=== PATIENT | male | born 1940 | race Caucasian/White ===

== ENCOUNTER 2016-06-14 06:52 | Day surgery (SDC) | payer MEDICARE, OTHER ==
[~2016-06-14] VITALS: Ht 165.1 cm; Wt 49.1 kg
[~2016-06-14 06:52] MED LIST: LACTATED RINGERS 1,000 ML IV ONE; SODIUM CHLORIDE FLUSH 3 ML SYR ONE
[2016-06-14] MEDS ORDERED: LACTATED RINGERS 1,000 ML IV SCH (07:00)
[2016-06-14] MEDS ORDERED: SODIUM CHLORIDE FLUSH 3 ML SYR IV PRN (07:00)
[2016-06-14 07:03] VITALS: BP 132/73
[2016-06-14] MEDS ORDERED: ALFENTANIL 500 MCG/ML (ALFENTA) 5 ML AMP IV ONE (07:29)
[2016-06-14] MEDS ORDERED: MIDAZOLAM 2 MG/2 ML (VERSED) VIAL ONE (07:29)
[2016-06-14] MEDS ORDERED: PROPOFOL 20 ML IV ONE (07:29)
[2016-06-14] MEDS ORDERED: FLUMAZENIL (ROMAZICON) 0.1 MG/ML 5 ML VIAL ONE (09:16)
[2016-06-14 09:41] VITALS: BP 120/61
[2016-06-14 10:21] VITALS: BP 133/43
== END 2016-06-14 10:33 | disposition home or self-care (01) ==
LOC: ASC 06:52
PROVIDERS: ATTEND Surgery
DX: C18.2 Malignant neoplasm of ascending colon (principal); D12.5 Benign neoplasm of sigmoid colon; K57.30 Diverticulosis of large intestine without perforation or abscess without bleeding; K76.9 Liver disease, unspecified; E27.8 Other specified disorders of adrenal gland; Z87.891 Personal history of nicotine dependence; R63.4 Abnormal weight loss; Z68.1 Body mass index [BMI] 19.9 or less, adult; Z80.9 Family history of malignant neoplasm, unspecified
CPT/HCPCS: 36415; 45381; 45385; 82378; 83835; 88305; 93005; J2250; J3490; J7120

== ENCOUNTER 2016-06-21 09:31 | Inpatient (IN) | payer MEDICARE, OTHER ==
[2016-06-21] VITALS (13 sets, daily range): BP systolic 115–153; BP diastolic 57–85
[~2016-06-21] VITALS: Ht 165.1 cm; Wt 59.2 kg
[~2016-06-21 09:31] MED LIST changes: +BUPIVACAINE/EPINEPHRINE 0.5%-1:200,000 (MARCAINE) 30 ML VIAL INJ ONE; +ENOXAPARIN 30 MG/0.3 ML (LOVENOX) SYR SC ONE; -LACTATED RINGERS 1,000 ML IV ONE; +LACTATED RINGERS 1,000 ML IV SCH; +MINERAL OIL 25 ML BTL TOP ONE; -SODIUM CHLORIDE FLUSH 3 ML SYR ONE; +ceFAZolin 2,000 MG in WATER (STERILE) FOR INJECTION 20 ML IV SCH
[2016-06-21] MEDS: SODIUM CHLORIDE FLUSH 3 ML SYR IV PRN (10:18)
[2016-06-21 10:46] LABS: MEAN CORPUSCULAR HEMOGLOBIN 24.5 PG (26.0-34.0); MEAN PLATELET VOLUME 8.3 FL (6.0-9.5); WHITE BLOOD COUNT 21.68 10^3uL (4.0-11.0)
[2016-06-21 10:52] LABS: ANION GAP 14.2 MEQ/L (3-15)
[2016-06-21] MEDS ORDERED: MIDAZOLAM 2 MG/2 ML (VERSED) VIAL ONE (11:11)
[2016-06-21] MEDS ORDERED: PROPOFOL 20 ML IV ONE (11:11)
[2016-06-21] MEDS ORDERED: ALFENTANIL 500 MCG/ML (ALFENTA) 5 ML AMP IV ONE (11:11)
[2016-06-21] MEDS ORDERED: ROCURONIUM 50 MG/5 ML (ZEMURON) VIAL IV ONE (11:51)
[2016-06-21] MEDS ORDERED: diphenhydrAMINE 50 MG/ML INJ (BENADRYL) ONE (11:51)
[2016-06-21] MEDS ORDERED: ONDANSETRON 2 MG/ML (Z0FRAN) 2 ML VIAL ONE (11:51)
[2016-06-21 12:19] LABS: BILIRUBIN,URINE Negative (Negative); CLARITY,URINE Clear; COLOR,URINE Yellow; GLUCOSE, URINE (UA) Negative (Negative); LEUKOCYTE ESTERASE ,URINE Negative (Negative); UROBILINOGEN,URINE 0.2 mg/dL (0.2-1.0)
[2016-06-21] MEDS ORDERED: GLYCOPYRROLATE 0.2 MG/ML (ROBINUL) 1 ML VIAL ONE (13:12)
[2016-06-21] MEDS ORDERED: NEOSTIGMINE 1 MG/ML SYRINGE ONE (13:12)
[2016-06-21] MEDS ORDERED: morphine INJ 4 MG/ML 1 ML SYRINGE ONE (14:17)
[2016-06-21] MEDS ORDERED: NALOXONE 0.4 MG/ML (NARCAN) 1 ML VIAL IV PRN (14:45)
[2016-06-21] MEDS ORDERED: HYDROmorphone PCA 30 MG/30 ML (DILAUDID) VIAL IV PRN (14:45)
[2016-06-21] MEDS ORDERED: diphenhydrAMINE 50 MG/ML INJ (BENADRYL) IV PRN (14:45)
--- NOTE | 2016-06-21 15:15 | NUR ---
Patient arrives to room 313 via bed from recovery room. Remains drowsy from surgery. 2L of 02 applied for oxygen saturation of 88% on roomair upon arrival. 4 abdominal incisions with dressing clean, dry, and intact. Patient oriented to room and floor routines. Call light in reach.
[2016-06-21] MEDS: 0.45% SOD CHLORIDE (1/2 NS) 1,000 ML IV SCH (15:58)
[2016-06-21] MEDS: KETOROLAC 30 MG/ML (TORADOL) 1 ML VIAL IV SCH (17:26)
[2016-06-21] MEDS: ONDANSETRON 2 MG/ML (Z0FRAN) 2 ML VIAL IV SCH (17:26)
--- NOTE | 2016-06-21 17:57 | NUR ---
Patient sitting up in bed consuming small amount of ice chips. Daughters at bedside. reports abdominal pain rated 1/10 on pain scale. Dilaudid CUSTOMER SERVICE VOICE button within reach. Noyola catheter draining clear yellow urine. Call light in reach.
[2016-06-21] MEDS: GABAPENTIN 100 MG (NEURONTIN) CAP PO SCH ×2 (20:00→21:00)
--- NOTE | 2016-06-21 20:00 | NUR ---
Patient resting in bed. HOB elevated 30 degrees. Abdominal dressings dry and intact. Taking ice chips without nausea. Reminded on how to use the SPINNING FRAME TENDER to control his pain. Has only used it once since surgery. Patient denies pain or nausea. IV patent at 100 cc an hour. No complications at site. Noyola catheter drains yellow urine. Takes ice chips without nausea. Taking a few sips of water without difficulty. Scds on and functioning. No bowel sounds auscultated. Oxygen on at 2 liters per nasal cannula. ETC02 on and vitals within parameters. Call light within reach.
[2016-06-22] VITALS (10 sets, daily range): BP systolic 97–152; BP diastolic 56–79
--- NOTE | 2016-06-22 | NUR ---
Resting well in bed. Repositioned in bed. HOB elevated 30 degrees. Dressings remain dry and intact. No bowel sounds yet. Denies pain or nausea. IV patent. Used CLASS C TRUCK DRIVER only one time. Reminded to use CLASS C TRUCK DRIVER if needed. Noyola drains ascencion. Takes liquids, sips well. Takes ice chips well. Not passing flatus yet. Toradol and Zofran administered as ordered q 6 hours. Patient alert and oriented. Call light within reach. No concerns at this time.
[2016-06-22] MEDS: 0.45% SOD CHLORIDE (1/2 NS) 1,000 ML IV SCH ×2 (00:45→11:23)
[2016-06-22] MEDS: ONDANSETRON 2 MG/ML (Z0FRAN) 2 ML VIAL IV SCH ×5 (06:00→23:49)
[2016-06-22 06:07] LABS: BASOPHILS % (AUTO) 1 % (0-2); EOSINOPHILS # (AUTO) 0.6 10^3uL; EOSINOPHILS % (AUTO) 5 % (0-4); LYMPHOCYTES # (AUTO) 2.6 X10^3; MEAN PLATELET VOLUME 8.5 FL (6.0-9.5); MONOCYTES # (AUTO) 0.9 X10^3; MONOCYTES % (AUTO) 7 % (3-11); NEUTROPHILS # (AUTO) 9.2 X10^3; NEUTROPHILS % (AUTO) 68 % (51-67); WHITE BLOOD COUNT 13.39 10^3uL (4.0-11.0)
[2016-06-22 06:14] LABS: MEAN CORPUSCULAR HEMOGLOBIN 24.3 PG (26.0-34.0); MEAN CORPUSCULAR VOLUME 76 FL (80-100)
[2016-06-22 06:15] LABS: PLATELET COUNT 754 10^3uL (150-450)
[2016-06-22 06:37] LABS: ANION GAP 10.2 MEQ/L (3-15)
[2016-06-22] MEDS: KETOROLAC 30 MG/ML (TORADOL) 1 ML VIAL IV SCH ×4 (06:37→17:47)
--- NOTE | 2016-06-22 08:11 | NUR ---
NUTRITION ASSESSMENT Level 1 Patient: Manish Franco Age/Sex: 76/M Date Screened: 06-22-16 Weight: 111.5#/50.7 kg Height: 65 inches Primary Diagnosis: colon cancer with right hemicolectomy Diet Order: none Relevant labs: glucose 64 Food allergies: N Nutrition Assessment Criteria Age over 80: N Body Mass Index (BMI) under 19: 6 points Admission Screening Indicates Risk? 6 points Moderate/High Risk Diagnosis: 6 points TPN or PPN: N NPO or clear liquid diet: Yes Serum Glucose <70 or >180: 3 points Hgb A1c >6.7: N/A Total: 21 points Risk Screen: __ Patient at low nutritional risk based on available data; reevaluate in 5-7 days __ Patient at moderate nutritional risk based on available data; reevaluate in 3-5 days _X_ Patient at high nutritional risk; complete Nutrition Assessment within 48 hours of admission.
[2016-06-22] MEDS: GABAPENTIN 100 MG (NEURONTIN) CAP PO SCH ×2 (08:14→20:55)
[2016-06-22] MEDS: ENOXAPARIN 30 MG/0.3 ML (LOVENOX) SYR SC SCH (08:14)
--- NOTE | 2016-06-22 08:37 | NUR ---
Pt awake, alert/oriented x4, watching tv. Taking Ice chips independently without difficulties- states this helps with dry mouth. IVF infusing at 100ml/hr as ordered to 18g RFA + Dilaudid FOUNDER AND CHIEF EXECUTIVE OFFICER intact- FOUNDER AND CHIEF EXECUTIVE OFFICER button within reach and re-educated on use if in pain. Has pushed FOUNDER AND CHIEF EXECUTIVE OFFICER button x1 since 0600 this am. ETCO2 monitor in place to Rt hand per FOUNDER AND CHIEF EXECUTIVE OFFICER protocol= HR 70, O2 94% on 3L nc, RR 20, ETCO2 25. Noyola to DD- clear, pale yellow urine in collection bag. SCD's in place to BLE as ordered- tolerates without c/o. Denies abd incisional pain- Incisional dressings x4 clean dry. Will change dressing with Dr. Hayes. Pt denies needs at this time. Call light within reach- calls appropriately.
--- NOTE | 2016-06-22 09:32 | NUR ---
NUTRITION ASSESSMENT Level II Patient: Manish Franco Age/Sex: 76/M Date Assessed: 06-22-16 ASSESSMENT Pertinent History: Patient admitted with colon cancer s/p right hemicolectomy on 06-21-16. PMHx appears negative for chronic diseases. Noted poor appetite with unintentional weight loss of ~20# over the past couple of months; the only other weight documented in chart is 113# on 06-13-16. Meds/Nutrition: NS Weight: 111.5#/50.7 kg Height: 65 inches Body Mass Index (BMI): 18.6 [place] Body Weight : 136#/61.8 kg % IBW: 81% GASTROINTESTINAL Appetite: poor Diet Order: NPO Unintentional loss of >10 lbs. in 3 months: Yes Difficult to chew/swallow: N Diabetes: N Relevant Labs: glucose 64 Calculations for Nutritional Assessment Estimated calorie needs: 28-30 kcals/kg = 1,400-1,500 kcals (plus 500-1,000 for weight gain) Estimated protein needs: 1.3-1.5 g/kg = 65-75 g./day DIAGNOSIS 1. 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 2. Nutrition Diagnosis: Altered GI function related to recent surgery as evidenced by right hemicolectomy POD #1. NUTRITIONAL INTERVENTION Goal: Patient will receive adequate nutrition to meet his needs within an appropriate time-frame with gradual return to normal BMI. Plan: Will monitor length of time NPO and follow progress with surgeon. This is POD #1. MONITORING & EVALUATION __ Monitor patients menu selections __ Monitor patients food intake per nursing notes _X_ Monitor NPO/clear liquid days __ Monitor lab values __ Monitor I&O __ Other
--- NOTE | 2016-06-22 09:45 | NUR ---
Dr. Hayes has been here this AM to see patient. He changed abd dressings. All clean, dry intact. Incisions all well approximated. No redness/swelling or drainage from incisions.
--- NOTE | 2016-06-22 11:47 | NUR ---
MED REC COMPLETED-current med list obtained from Ext Med History application and patient interview. Conducted by Mitch Williamson, PharmD Candidate 2017.
--- NOTE | 2016-06-22 11:50 | NUR ---
Noyola catheter dc'd per Dr. Hayes orders. balloon intact. pt tolerated without c/o.
--- NOTE | 2016-06-22 12:00 | NUR ---
Pt up in chair for lunch- tolerating clear liquid diet without c/o n/v. Hypoactive bowel sounds. denies passing gas per rectum.
--- NOTE | 2016-06-22 15:46 | NUR ---
O2 titrated to 1L nc from 3L. Erin RT notified. O2 sats 99% on 3L nc. Will cont to monitor. Has voided 250ml pale, clear yellow urine since derrick Has used 0.9mg Dilaudid on SWATCH CLERK since 0600 this AM. Stands at edge of bed indep to stretch legs. agreed to ambulate halls this afternoon.
--- NOTE | 2016-06-22 16:45 | NUR ---
O2 sats 95% 1L nc. Titrated to RA now. Will cont to monitor. ANTIQUE FURNITURE RESTORER Dc'd at this time. Used 0.9mg Dilaudid since 0600. Wasted 27mg. Ambulated 2 full laps. Sipping coffee. SL at this time
--- NOTE | 2016-06-22 18:33 | NUR ---
Pt remains on RA, no distress. IV SL. Watching tv . Denies abd pain. Will cont to monitor patient.
--- NOTE | 2016-06-22 19:30 | NUR ---
Pt laying in bed. Saline lock without redness or edema. Abdomen dressings dry and intact. Pt denies any pain at this time.
--- NOTE | 2016-06-22 19:35 | NUR ---
Pt found lying in bed on RA, SPO2 94%, HR 67, RR 16 and non labored. IS x 4 x 1500 ml with good breath hold.
--- NOTE | 2016-06-22 21:45 | NUR ---
Pt offered pain medication. Pt denies need for pain medication at this time. Pt declines a walk in the hallway at this time.
[2016-06-22] MEDS: SODIUM CHLORIDE FLUSH 3 ML SYR IV PRN (23:47)
[2016-06-23] MEDS: KETOROLAC 30 MG/ML (TORADOL) 1 ML VIAL IV SCH (00:45)
[2016-06-23 04:28] VITALS: BP 105/62
[2016-06-23] MEDS: ONDANSETRON 2 MG/ML (Z0FRAN) 2 ML VIAL IV SCH (06:00)
[2016-06-23 06:05] LABS: BASOPHILS % (AUTO) 0 % (0-2); EOSINOPHILS # (AUTO) 0.6 10^3uL; EOSINOPHILS % (AUTO) 5 % (0-4); LYMPHOCYTES # (AUTO) 1.8 X10^3; MEAN PLATELET VOLUME 8.3 FL (6.0-9.5); MONOCYTES # (AUTO) 0.6 X10^3; MONOCYTES % (AUTO) 6 % (3-11); NEUTROPHILS # (AUTO) 7.8 X10^3; NEUTROPHILS % (AUTO) 72 % (51-67); WHITE BLOOD COUNT 10.86 10^3uL (4.0-11.0)
[2016-06-23 06:11] LABS: MEAN CORPUSCULAR HEMOGLOBIN 23.7 PG (26.0-34.0); MEAN CORPUSCULAR HGB CONC 31.3 g/dL (31.0-37.0); MEAN CORPUSCULAR VOLUME 76 FL (80-100)
[2016-06-23 06:12] LABS: PLATELET COUNT 866 10^3uL (150-450)
[2016-06-23 06:35] LABS: ANION GAP 9.5 MEQ/L (3-15)
--- NOTE | 2016-06-23 06:55 | NUR ---
Pt refuses MARY Headley. States he isn't feeling nauseous. States his pain is "fine". Denies needs at this time.
[2016-06-23 08:05] VITALS: BP 140/67
[2016-06-23] MEDS: GABAPENTIN 100 MG (NEURONTIN) CAP PO SCH ×2 (08:22→20:48)
[2016-06-23] MEDS: ENOXAPARIN 30 MG/0.3 ML (LOVENOX) SYR SC SCH (08:22)
[2016-06-23] MEDS ORDERED: ASPIRIN 325 MG TAB PO SCH (09:00)
[2016-06-23] MEDS: NS FLUSH 3 ML DAILY IV SCH (09:13)
[2016-06-23] MEDS: ONDANSETRON 2 MG/ML (Z0FRAN) 2 ML VIAL IV PRN ×3 (09:18→20:48)
--- NOTE | 2016-06-23 09:22 | NUR ---
Pt states he is belching so much after breakfast that he feels like he may vomit. PRN Zofran given. Pt then stated that he belched enough to clear the nausea. Pt denies other needs.
[2016-06-23 11:59] VITALS: BP 146/60
--- NOTE | 2016-06-23 13:06 | NUR ---
Visited with Pt. and daughter about Dr. Jones's recommendation of having the Lovenox shot daily for the next four weeks upon discharge to prevent blood clots. DEMAR explained this could be administered by family if they were comfortable or home health services could help with this. Pt. stated he wasn't sure he wanted to do this. If he does decide this then he would utilize [facility] . the home health agency in [place], [place] SW discussed this with Dr. Jones who stated he would come visit with Pt. and his daughter. He also said Pt. would need two weeks not four weeks. Pt. and daughter were informed of this. After visiting with Dr. Jones Pt. agreed to complete the two weeks of Lovenox shot. DEMAR will contact the [facility] and find out if there will be a cost to Pt. and report back to Pt. and daughter. Addendum: 06/23/16 at 1405 by Alyce RESENDIZ At the request of Pt. daughter DEMAR contacted Pt. pharmacy [facility] in [place] to get a cost of the medication for Pt. DEMAR also contacted [facility] in [place] to obtain the cost of outpatient injections. After discussing this with Pt. daughter she decided they would go with home health services. DEMAR has notified [facility] of Pt. scheduled discharge on Sunday.
[2016-06-23] MEDS: NS FLUSH 10 ML PRN IV ×4 (14:59→20:48)
[2016-06-23] MEDS: HYDROmorphone 1 MG/ML (DILAUDID) SYRINGE IV PRN ×3 (15:23→23:41)
[2016-06-23 15:49] VITALS: BP 154/78
--- NOTE | 2016-06-23 16:39 | NUR ---
Patient reports "gas discomfort" and bloating in generalize abdomen. Attempts to walk in halls to "move air". Ambulates 1/2 lap before returning to room with increased pain. PRN Zofran and Dilaudid provided for pain. At 1620 patient expels 300ml green bile emesis. Reports relief from pain after this. Dr. Jones notified by phone that patient is not passing gas and current status. Reports he will be here in a few minutes. Daughters at bedside. Will continue to monitor.
[2016-06-23] MEDS ORDERED: BISACODYL 10 MG SUPP (DULCOLAX) PR ONE (17:05)
--- NOTE | 2016-06-23 17:20 | NUR ---
IVF initiated and Dulcolax suppository administered per order. Patient educated on NPO status. Will continue to monitor.
--- NOTE | 2016-06-23 18:27 | NUR ---
Patient sitting up in bed. Reports "terrible taste in mouth" but denies further gas discomfort or nausea. IVF infusing without difficulty. Daughter at bedside and updated on plan of care. Call light in reach.
[2016-06-23 20:13] VITALS: BP 133/76
--- NOTE | 2016-06-23 20:50 | NUR ---
Dilaudid 0.3 mg IV given for epigastric/incisional pain rated "6".
--- NOTE | 2016-06-23 20:50 | NUR ---
Zofran 4 mg IV given for nausea.
--- NOTE | 2016-06-23 22:35 | NUR ---
Pt. takes a full lap around the Med Surg floor hallway with this RN; stops once to rest; pace quick and steady. Pt. states, "If I could only burp, I would feel so much better!". Pt. experiences aprx. 50 cc's emesis after returning to room. Abd. firm to palpitation. Dressings secure with no drainage noted. Pt. sits at bedside for while. Call light within reach. NPO status observed.
--- NOTE | 2016-06-23 23:45 | NUR ---
Dilaudid 0.3mg IV given for abd/upper gastric pain rated "4". Pt. resting with HOB elevated; IVF infusing without difficulty; call light within reach. Mouth sponges at bedside.
[2016-06-24] VITALS (7 sets, daily range): BP systolic 115–161; BP diastolic 57–85
--- NOTE | 2016-06-24 01:30 | NUR ---
Pt. resting quietly; appears to be in no distress; HOB elevated; call light within reach.
[2016-06-24] MEDS: ONDANSETRON 2 MG/ML (Z0FRAN) 2 ML VIAL IV PRN ×4 (03:13→23:59)
[2016-06-24] MEDS: HYDROmorphone 1 MG/ML (DILAUDID) SYRINGE IV PRN ×2 (03:14→06:02)
--- NOTE | 2016-06-24 03:15 | NUR ---
Zofran 4 mg IV given for nausea; Dilaudid 0.3mg given for incisional/upper gastric discomfort. Pt. had a small amount of emesis-50 cc's-states, "I am burping a little but still feel full and have pressure". Room temperature adjusted for pt. comfort.
--- NOTE | 2016-06-24 06:05 | NUR ---
Dilaudid 0.3mg IV given for abd. pain rated "5-6". Pt. denies nausea currently. Abd. noted to be firmer than at earlier assessment; HOB elevated. Call light within reach; NPO status observed.
[2016-06-24 06:46] LABS: MEAN PLATELET VOLUME 8.8 FL (6.0-9.5)
[2016-06-24 07:01] LABS: MEAN CORPUSCULAR HEMOGLOBIN 23.3 PG (26.0-34.0); MEAN CORPUSCULAR HGB CONC 31.5 g/dL (31.0-37.0); MEAN CORPUSCULAR VOLUME 74 FL (80-100)
[2016-06-24 07:04] LABS: ANION GAP 10.8 MEQ/L (3-15); MAGNESIUM* 2.2 mg/dL (1.6-2.3); PHOSPHORUS 3.1 mg/dL (2.4-4.9); PLATELET COUNT 935 10^3uL (150-450)
[2016-06-24 07:14] LABS: BAND NEUTROPHILS % 1 % (0-6); EOSINOPHILS % 0 % (0-4); LYMPHOCYTES # 1.9 #; MONOCYTES # 0.5 #; MONOCYTES % 6 % (3-11); RBC MORPH SEE REFERENCE (NORMAL); SEGMENTED NEUTROPHILS % 74 % (51-67); TOTAL CELLS COUNTED 100
[2016-06-24 07:15] LABS: ANISOCYTOSIS SLIGHT; HYPOCHROMASIA SLIGHT
[2016-06-24] MEDS: NS FLUSH 3 ML DAILY IV SCH (09:00)
[2016-06-24] MEDS: GABAPENTIN 100 MG (NEURONTIN) CAP PO SCH ×2 (09:29→21:20)
[2016-06-24] MEDS: ENOXAPARIN 30 MG/0.3 ML (LOVENOX) SYR SC SCH (09:30)
--- NOTE | 2016-06-24 09:30 | NUR ---
Dr. Jones here to assess the patient. Incisions on the abdomen are dry and intact and dressings were left off at this time.
[2016-06-24] MEDS ORDERED: BISACODYL 10 MG SUPP (DULCOLAX) PR ONE (09:45)
--- NOTE | 2016-06-24 10:45 | NUR ---
Gave dulcolax suppository per order.
--- NOTE | 2016-06-24 10:50 | NUR ---
Walked two full laps in the aguirre with stand by assist. Educated patient on the importance of picking his feet up while walking the halls- he frequently shuffles.
--- NOTE | 2016-06-24 11:50 | NUR ---
Walked another 2 laps with stand by assist.
--- NOTE | 2016-06-24 12:10 | NUR ---
The patient was able to pass gas and a small amount of stool. Abdomen remains distended but is softer than earlier this morning.
[2016-06-24] MEDS: NALBUPHINE 10 MG/ML (NUBAIN) 1 ML AMP IV PRN ×2 (14:26→20:36)
--- NOTE | 2016-06-24 15:09 | NUR ---
Walked another lap in the aguirre with the OBSERVER GRAVITY PROSPECTING. Complains again of "burping" as he has throughout the day. Educated the patient that there continues to be gas moving around the abdomen but he is very impatient and wants this discomfort to go away immediately.
--- NOTE | 2016-06-24 17:15 | NUR ---
Walked another full lap in the aguirre with stand by assist from the VAT SKIMMER.
--- NOTE | 2016-06-24 17:30 | NUR ---
Patient had a liquid stool.
--- NOTE | 2016-06-24 18:08 | NUR ---
Abdomen is much softer than this morning and much less distended. Incisions remain open to air- dry and intact. Patient has required only 1 dose of IV Nubain on this shift. He still reports a feeling of nausea but the only thing he brings up is thick phlegm that is usually brown/yellow in color- no stomach contents. Educated him on deep breathing and the importance of continued use of incentive spirometry.
[2016-06-24] MEDS: SODIUM CHLORIDE FLUSH 3 ML SYR IV PRN (20:36)
[2016-06-24] MEDS: NS FLUSH 10 ML PRN IV ×2 (20:36→23:59)
--- NOTE | 2016-06-24 20:36 | NUR ---
Nubain IV given for pain level of "8". Pt. nauseated; scant amount of emesis; "wretching". IVF infusing at 80 cc's an hour. Room full of visitors. Encouraged pt. to walk with this RN in a few minutes.
--- NOTE | 2016-06-24 21:10 | NUR ---
Pt. ambulating hallway with family members; two times around; tends to shuffle feet; pace fairly quick.
--- NOTE | 2016-06-25 | NUR ---
Zofran 4 mg IV given for nausea; pt. resting in darkened room; additional blanket provided for comfort.
[2016-06-25] MEDS: NALBUPHINE 10 MG/ML (NUBAIN) 1 ML AMP IV PRN ×4 (02:25→18:09)
[2016-06-25] MEDS: NS FLUSH 10 ML PRN IV (02:25)
--- NOTE | 2016-06-25 02:25 | NUR ---
Pt. experiences aprx. 100 cc's emesis. Partial linen change; pt. sits up at bedside; Nubain given for pain level of "8". No change in firmness of stomach since assessment earlier. IVF infusing without difficulty; bedside table at right side; call light within reach.
[2016-06-25 04:45] VITALS: BP 116/65
[2016-06-25] MEDS: ONDANSETRON 2 MG/ML (Z0FRAN) 2 ML VIAL IV PRN ×3 (06:20→18:15)
--- NOTE | 2016-06-25 06:20 | NUR ---
Zofran 4 mg IV given for nausea. Pt. has slept in longer intervals compared to previous night.
--- NOTE | 2016-06-25 06:45 | NUR ---
Nubain given for pain rated "8". Pt. expresses discontent with slow recovery from surgery; "I should be home now and not still here in the hospital being in pain--I"m tired of all this!" Much reassurance given to pt. NPO status remains. Pt. has utilized urinal at bedside throughout the shift. Gown changed and room temperature adjusted for comfort. Pt. reminded to not lay flat in bed; HOB elevated but pt. scoots down often. Pt. is cooperative with cares; call light and H2O within reach. Note: Pt. did have one actual episode of emesis last shift; all other reports of "throwing up" were actually saliva/phlegm. Pt. wonders if the Zofran is causing him to "throw up all the time".
[2016-06-25 08:08] VITALS: BP 146/68
--- NOTE | 2016-06-25 08:15 | NUR ---
Ambulated one lap in the aguirre with the SPOOL WINDER.
[2016-06-25] MEDS: NS FLUSH 3 ML DAILY IV SCH (09:00)
--- NOTE | 2016-06-25 09:30 | NUR ---
Patient had one episode of vomiting green colored liquid- 150 cc's total. But it took about 5 minutes of gagging and coughing before this liquid and some thick sputum came up. He also forced several large belches before this liquid/sputum combination came up.
[2016-06-25] MEDS: GABAPENTIN 100 MG (NEURONTIN) CAP PO SCH ×2 (09:36→20:21)
[2016-06-25] MEDS: ENOXAPARIN 30 MG/0.3 ML (LOVENOX) SYR SC SCH (09:37)
--- NOTE | 2016-06-25 09:42 | NUR ---
Ambulated one lap in the aguirre with the FULFILLMENT MAIL CLERK. He states he's in too much pain to walk more. Pain medication administered at 0645. Educated the patient that as gas moves around he may experience periods of increased pain but movement assists in getting this gas expelled. His mood and and expressed frustration about still being in the hospital when he wants to be home are keeping him from processing this teaching at this time.
[2016-06-25] MEDS: PANTOPRAZOLE IV 40 MG in SODIUM CHLORIDE FLUSH 10 ML IV SCH (10:56)
--- NOTE | 2016-06-25 11:50 | NUR ---
Gave one enema per order. Patient tolerated this well and was able to lay on his left side without difficulty.
--- NOTE | 2016-06-25 12:10 | NUR ---
Patient had a medium loose stool. Abdomen continues to be soft and less distended than yesterday.
[2016-06-25 12:49] VITALS: BP 114/89
[2016-06-25] MEDS: KETOROLAC 15 MG/ML (TORADOL) 1 ML VIAL IV SCH ×2 (12:58→18:10)
--- NOTE | 2016-06-25 13:00 | NUR ---
Patient denies pain at this time.
--- NOTE | 2016-06-25 14:19 | NUR ---
Ambulated two laps in the aguirre with the REPAIRER CYLINDER HEADS. He reported he did not have any pain at this time.
[2016-06-25] MEDS: ACETAMINOPHEN 325 MG TAB (TYLENOL) PO PRN (15:59)
--- NOTE | 2016-06-25 15:59 | NUR ---
Pt c/o headache, Dr. Jones called and new order received. Tylenol 325mg tab x 2 given for headache per orders.
[2016-06-25 16:48] VITALS: BP 151/81
--- NOTE | 2016-06-25 17:29 | NUR ---
Patient remains NPO with gum and a limited amount of ice chips. He has not reported the return of his appetite yet. I have continued to encourage him about his improvements today but he continues to have a negative attitude about his progress. Daughters report he is frequently this way at home as well.
--- NOTE | 2016-06-25 18:30 | NUR ---
Patient reported to this nurse that he anticipates he will need to vomit soon. When I questioned him about this he stated "I don't have to right now but I will need to pretty soon."
[2016-06-25 19:48] VITALS: BP 145/83
--- NOTE | 2016-06-25 20:25 | NUR ---
Pt. takes PO meds with scant amount of water. IVF infusing at 80 cc/hr without difficulty. Pt. encouraged to ambulate again this evening; pt. states, "Oh, I just can't right now". NPO status observed minus ice chips and hard candy.
--- NOTE | 2016-06-25 22:00 | NUR ---
Pt. has refused to walk this evening with both RN and DIRECTOR DIVERSITY requests. PRN and scheduled pain meds reviewed. Call light within reach.
--- NOTE | 2016-06-25 23:30 | NUR ---
Report given to Symone/OBI; care relinquished.
[2016-06-25 23:51] VITALS: BP 156/70
[2016-06-26] MEDS: KETOROLAC 15 MG/ML (TORADOL) 1 ML VIAL IV SCH ×5 (00:06→23:55)
[2016-06-26 05:08] VITALS: BP 165/79
--- NOTE | 2016-06-26 05:22 | NUR ---
Pt rests in bed throughout the shift. Skin warm, dry, intact. Resprs nonlabored, even on RA. NS @ 80mL/hr infusing with no difficulty. Pt denies needs.
[2016-06-26 06:28] LABS: ANION GAP 13.4 MEQ/L (3-15)
[2016-06-26 07:28] VITALS: BP 155/69
[2016-06-26] MEDS: NS FLUSH 3 ML DAILY IV SCH (08:49)
[2016-06-26] MEDS: PANTOPRAZOLE IV 40 MG in SODIUM CHLORIDE FLUSH 10 ML IV SCH (08:49)
[2016-06-26] MEDS: GABAPENTIN 100 MG (NEURONTIN) CAP PO SCH ×2 (08:50→20:06)
[2016-06-26] MEDS: ONDANSETRON 2 MG/ML (Z0FRAN) 2 ML VIAL IV PRN ×2 (08:50→14:52)
[2016-06-26] MEDS: ENOXAPARIN 30 MG/0.3 ML (LOVENOX) SYR SC SCH (08:50)
[2016-06-26] MEDS: NALBUPHINE 10 MG/ML (NUBAIN) 1 ML AMP IV PRN ×2 (10:20→15:24)
[2016-06-26 11:18] VITALS: BP 110/59
--- NOTE | 2016-06-26 13:58 | NUR ---
MULTIDISCIPLINARY MTG-Pt. now has an ileus and is back to NPO. Pt. has been struggling with pain control and nausea. Pt. does not have much strength due to lack of nutrition. No discharge needs identified at this time.
[2016-06-26 15:34] VITALS: BP 137/80
--- NOTE | 2016-06-26 18:11 | NUR ---
Patient sitting up in recliner. Ambulates one lap today in aguirre. Reports feeling "weak and ran down". PRN Nubain provided on two occasions. Expels 50 ml emesis at 1500. [address]. Jones aware. Dr. Jones ok's patient chewing nicotine gum when patient desires. Call light in reach.
[2016-06-26 20:09] VITALS: BP 115/70
[2016-06-27 00:16] VITALS: BP 148/78
[2016-06-27] MEDS: NALBUPHINE 10 MG/ML (NUBAIN) 1 ML AMP IV PRN (04:02)
[2016-06-27] MEDS: ONDANSETRON 2 MG/ML (Z0FRAN) 2 ML VIAL IV PRN (04:02)
[2016-06-27] MEDS: NS FLUSH 10 ML PRN IV (04:03)
--- NOTE | 2016-06-27 04:03 | NUR ---
Pt wakes up and begins vomiting. States that his stomach hurts. PRN zofran and nubain given.
[2016-06-27] MEDS: KETOROLAC 15 MG/ML (TORADOL) 1 ML VIAL IV SCH ×3 (05:46→18:26)
[2016-06-27 05:59] VITALS: BP 170/82
--- NOTE | 2016-06-27 06:11 | NUR ---
Pt states that nausea and pain resolve with PRN medications. Denies further discomfort this morning, but does state that he has "not had much sleep. I've been lying here for ages." NS cont infusing at 80 ml/hr. Resp even and non labored on RA.
[2016-06-27 07:59] VITALS: BP 154/71
[2016-06-27] MEDS: NS FLUSH 3 ML DAILY IV SCH (09:00)
[2016-06-27] MEDS: PANTOPRAZOLE IV 40 MG in SODIUM CHLORIDE FLUSH 10 ML IV SCH (09:01)
[2016-06-27] MEDS: GABAPENTIN 100 MG (NEURONTIN) CAP PO SCH ×2 (09:02→20:44)
[2016-06-27] MEDS: ENOXAPARIN 30 MG/0.3 ML (LOVENOX) SYR SC SCH (09:03)
--- NOTE | 2016-06-27 10:12 | NUR ---
Pt to Radiology for abd x ray.
--- NOTE | 2016-06-27 10:45 | NUR ---
Pt returns from radiology. Pt is dry heaving, no vomiting noted. Once pt settled in chair in room, dry heaving ceased. Pt encouraged to sit up in the chair, lights on in room. Pt endorses feeling extremely tired. SL intact. Denies pain. Denies needs.
[2016-06-27 11:33] VITALS: BP 141/75
[2016-06-27 11:43] LABS: ALBUMIN 2.3 g/dL (3.4-5.0); ANION GAP 17.9 MEQ/L (3-15); CALCULATED IONIZED CALCIUM 4.5 mg/dL (3.8-4.6)
[2016-06-27] MEDS: ONDANSETRON 2 MG/ML (Z0FRAN) 2 ML VIAL IV SCH ×2 (12:08→18:27)
[2016-06-27 12:45] LABS: BASOPHILS % (AUTO) 0 % (0-2); EOSINOPHILS % (AUTO) 0 % (0-4); MEAN PLATELET VOLUME 8.6 FL (6.0-9.5); MONOCYTES # (AUTO) 0.7 X10^3; MONOCYTES % (AUTO) 8 % (3-11); NEUTROPHILS # (AUTO) 7.3 X10^3; NEUTROPHILS % (AUTO) 81 % (51-67); WHITE BLOOD COUNT 9.07 10^3uL (4.0-11.0)
[2016-06-27] MEDS ORDERED: TPN IV SCH (13:08)
[2016-06-27 13:49] LABS: MEAN CORPUSCULAR HEMOGLOBIN 23.6 PG (26.0-34.0); MEAN CORPUSCULAR HGB CONC 31.7 g/dL (31.0-37.0); MEAN CORPUSCULAR VOLUME 75 FL (80-100)
[2016-06-27 13:50] LABS: PLATELET COUNT 1039 10^3uL (150-450)
[2016-06-27] MEDS: ACETAMINOPHEN 325 MG TAB (TYLENOL) PO PRN (14:50)
[2016-06-27 15:29] VITALS: BP 154/67
[2016-06-27] MEDS: HYDROmorphone 1 MG/ML (DILAUDID) SYRINGE IV PRN ×2 (18:27→20:44)
--- NOTE | 2016-06-27 19:00 | NUR ---
Pt and family had a long discussion about plan of care regarding cancer diagnosis, discovery of lung mass. Hospice to consult with patient tomorrow, anesthesia to insert PICC line for TPN that will be initiated tomorrow. Pt informs doctors that he has been having intense pain throughout the day, despite rating his pain below a 4 to this nurse. Pt expressed many frustrations about his cares to Dr Hayes and Dr Zapata during family meeting to which they eased said frustrations. PRN Dilaudid given at 1845. NS infusing with no difficulty. Family at bedside.
--- NOTE | 2016-06-27 19:35 | NUR ---
Marco/GARAGE ATTENDANT here to place PICC line. Dr. Zapata remains near by for family questions.
--- NOTE | 2016-06-27 19:50 | NUR ---
Radiology here to verify PICC line placement.
[2016-06-27 20:30] VITALS: BP 124/78
--- NOTE | 2016-06-27 20:45 | NUR ---
Dilaudid 1 mg IV given for pain rated "2-3". Pt. sitting with HOB up; family at bedside; call light on lap.
--- NOTE | 2016-06-27 22:00 | NUR ---
Pt. resting quietly with eyes closed; resp are even and unlabored on room air; HOB up; appears to be in no distress. Call light within reach.
[2016-06-28] MEDS: ONDANSETRON 2 MG/ML (Z0FRAN) 2 ML VIAL IV SCH ×6 (00:10→23:50)
[2016-06-28] MEDS: NS FLUSH 10 ML PRN IV ×7 (00:10→23:55)
[2016-06-28] MEDS: KETOROLAC 15 MG/ML (TORADOL) 1 ML VIAL IV SCH ×4 (00:28→17:30)
[2016-06-28 00:30] VITALS: BP_SYST 146; BP_SYST 160; BP_DIAS 88
--- NOTE | 2016-06-28 00:30 | NUR ---
Scheduled Zofran and Toradol given; pt. resting with HOB up; cooperative with cares. Call light within reach.
--- NOTE | 2016-06-28 05:00 | NUR ---
Pt. resting quietly; appears to be in no distress. Pt. has slept in long intervals this shift; appears comfortable. Pt. has not vomited or dry heaved in the past ten hours. Incisions remain open to air; edges well approximated; no seepage noted. Call light within reach.
[2016-06-28 06:00] VITALS: BP 140/78
[2016-06-28] MEDS ORDERED: TPN IV SCH (06:45)
--- NOTE | 2016-06-28 07:00 | NUR ---
Pt. down to radiology via wheel chair.
--- NOTE | 2016-06-28 07:30 | NUR ---
Patient returns from radiology upon shift assessment. Ambulates to bed from wheelchair with standby assist. Alert and oriented X3. Reports right lower abdominal pain rated 4/10 on pain scale and mild nausea contributed to movement. Bowel sounds audible in all quadrants. Abdominal incisions open to air with no redness noted. Patient discouraged and states "there's no use to keep hurting me, it's over". Positive reassurance provided. Updated on plan of care for shift including TPN administration, hospice consult, and pain management. Call light in reach.
[2016-06-28 07:42] LABS: BASOPHILS % (AUTO) 0 % (0-2); EOSINOPHILS # (AUTO) 0.1 10^3uL; EOSINOPHILS % (AUTO) 0 % (0-4); LYMPHOCYTES # (AUTO) 1.8 X10^3; MEAN PLATELET VOLUME 8.2 FL (6.0-9.5); MONOCYTES % (AUTO) 9 % (3-11); NEUTROPHILS # (AUTO) 8.7 X10^3; NEUTROPHILS % (AUTO) 75 % (51-67); WHITE BLOOD COUNT 11.55 10^3uL (4.0-11.0)
[2016-06-28 07:46] LABS: MEAN CORPUSCULAR HEMOGLOBIN 24.1 PG (26.0-34.0); MEAN CORPUSCULAR HGB CONC 31.5 g/dL (31.0-37.0); MEAN CORPUSCULAR VOLUME 77 FL (80-100)
[2016-06-28 07:47] LABS: PLATELET COUNT 1085 10^3uL (150-450)
[2016-06-28 07:52] VITALS: BP 123/83
[2016-06-28] MEDS: NS FLUSH 3 ML DAILY IV SCH (08:47)
[2016-06-28] MEDS: ENOXAPARIN 30 MG/0.3 ML (LOVENOX) SYR SC SCH (08:47)
[2016-06-28] MEDS: GABAPENTIN 100 MG (NEURONTIN) CAP PO SCH ×2 (08:56→20:09)
[2016-06-28] MEDS: PANTOPRAZOLE IV 40 MG in SODIUM CHLORIDE FLUSH 10 ML IV SCH (08:56)
[2016-06-28] MEDS: HYDROmorphone 1 MG/ML (DILAUDID) SYRINGE IV PRN ×3 (10:05→23:55)
[2016-06-28] MEDS: PROMETHAZINE HCL INJ 12.5 MG in SODIUM CHLORIDE 25 ML IV PRN ×2 (10:13→15:56)
--- NOTE | 2016-06-28 10:29 | NUR ---
Visited with Pt. and his daughter about hospice options. They would like to visit with [facility]. SW contacted [facility] and they will be here at 12:30 to visit with Pt. and his daughters.
[2016-06-28 12:00] VITALS: BP 124/64
--- NOTE | 2016-06-28 12:56 | NUR ---
Nutrition Follow Up: Patient has not been able to advance diet due to prolonged ileus with nausea and abdominal distention; also noted new findings of adrenal, liver and lung metastases. Pt. initially requested Hospice but agreed to do TPN to hopefully help regain strength with nutrition and discuss further options with his oncologist. Hospice remains an option that pt. and family are considering. TPN started today. Weight today: 125.4#/57 kg--this is up 13.9# since admission Labs: N/A 1. Recommend TPN at final rate of 80 ml/hr = 1,958 kcals, 83 g. protein. This is 97% of his estimated calorie needs and over 100% of protein needs. Recommend this be continued with home TPN until pt. definitively decides what his treatment plan should be, or until he is able to take adequate p.o. nutrition. Will follow with physician and surgeon.
--- NOTE | 2016-06-28 13:09 | NUR ---
Pt. three daughters visited with Marta with [facility]. The family would like to see if Pt. has any improvement with TPN. If not improvement then they would elect hospice. Marta will follow up with family daily to check on progress. Hospice will determine if Pt. qualifies for inpatient hospice vs. home with hospice.
[2016-06-28 15:15] VITALS: BP 135/66
[2016-06-28] MEDS: TPN IV SCH ×9 (15:57)
--- NOTE | 2016-06-28 15:58 | NUR ---
TPN initiated into left sided PICC line at 1558. Verified by this nurse and Gloria Storey RN. Accucheck upon initiation= 81. Patient and daughter educated on TPN. Will continue to monitor.
[2016-06-28] MEDS: [UNRECOGNIZED DRUG - NUTRITION] XX SCH (16:08)
--- NOTE | 2016-06-28 18:09 | NUR ---
Patient sitting up in bed. Requires PRN promethazine and Dilaudid on two occasions throughout day shift. Denies flatus or bowel movements. Patient unpleasant and uncooperative with cares. Positive reassurance provided. 18g IV in right forearm discontinued with catheter intact. No redness or swelling noted at insertion site. Daughters remain at bedside. Patient refuses to ambulate this shift. Call light in reach.
--- NOTE | 2016-06-28 20:00 | NUR ---
Accucheck is 156; obtained per TPN protocol.
[2016-06-28 20:09] VITALS: BP 174/75
--- NOTE | 2016-06-28 20:10 | NUR ---
Pt. takes scheduled gabapentin without difficulty; pulls self up in bed; pleasant with this nurse. PICC line site without HERP; TPN infusing at 40 cc/hr. Urinal at bedside within reach. Call light by right hand.
--- NOTE | 2016-06-28 23:55 | NUR ---
Scheduled Zofran given; Dilaudid 1 mg IV given for pain rated "3". Pt. resting with HOB slightly elevated; TPN infusing at 40 cc/hr; resp are even and unlabored on room air. Call light within reach.
[2016-06-29] VITALS (7 sets, daily range): BP systolic 130–194; BP diastolic 60–95
--- NOTE | 2016-06-29 00:10 | NUR ---
Accucheck is 174.
--- NOTE | 2016-06-29 03:05 | NUR ---
Pt. resting quietly; resp are even and unlabored on room air; appears to be in no distress. TPN infusing at left PICC line without difficulty. Call light within reach on right side.
--- NOTE | 2016-06-29 05:00 | NUR ---
Marya 191.
[2016-06-29] MEDS: ONDANSETRON 2 MG/ML (Z0FRAN) 2 ML VIAL IV SCH ×4 (05:49→23:36)
[2016-06-29] MEDS: NS FLUSH 10 ML PRN IV (05:49)
[2016-06-29] MEDS: HYDROmorphone 1 MG/ML (DILAUDID) SYRINGE IV PRN ×3 (05:56→17:45)
--- NOTE | 2016-06-29 06:00 | NUR ---
Dilaudid 1 mg IV given for pain rated "4-5"; scheduled Zofran also given. Pt. "spits" into emesis bag; no true emesis noted this shift. This nurse witness to pt. passing gas; much encouragement given for pt. to ambulate today, also. Pt. slept in long intervals last night; utilized urinal PRN. TPN infusing at 40 cc/hr without difficulty. Pt.'s demeanor has been pleasant with this nurse; noted fatigue level present.
[2016-06-29 06:28] LABS: BASOPHILS % (AUTO) 0 % (0-2); EOSINOPHILS # (AUTO) 0.1 10^3uL; EOSINOPHILS % (AUTO) 1 % (0-4); LYMPHOCYTES # (AUTO) 1.4 X10^3; MEAN PLATELET VOLUME 8.3 FL (6.0-9.5); MONOCYTES % (AUTO) 14 % (3-11); NEUTROPHILS # (AUTO) 4.8 X10^3; NEUTROPHILS % (AUTO) 65 % (51-67); WHITE BLOOD COUNT 7.27 10^3uL (4.0-11.0)
[2016-06-29 06:42] LABS: ANION GAP 9.3 MEQ/L (3-15); MAGNESIUM* 2.1 mg/dL (1.6-2.3); PHOSPHORUS 3.1 mg/dL (2.4-4.9)
[2016-06-29 06:43] LABS: ALBUMIN 2.3 g/dL (3.4-5.0); CALCULATED IONIZED CALCIUM 4.3 mg/dL (3.8-4.6); TOTAL PROTEIN 5.3 g/dL (6.4-8.5)
[2016-06-29 07:05] LABS: MEAN CORPUSCULAR HEMOGLOBIN 23.2 PG (26.0-34.0); MEAN CORPUSCULAR VOLUME 75 FL (80-100)
[2016-06-29 07:07] LABS: ABSOLUTE RETIC # 82 10^3uL (22-82); PLATELET COUNT 910 10^3uL (150-450)
[2016-06-29] MEDS ORDERED: FAT EMULSIONS 250 ML IV SCH ×2 (09:00)
[2016-06-29] MEDS: PANTOPRAZOLE IV 40 MG in SODIUM CHLORIDE FLUSH 10 ML IV SCH (09:09)
[2016-06-29] MEDS: GABAPENTIN 100 MG (NEURONTIN) CAP PO SCH ×2 (09:12→20:33)
[2016-06-29] MEDS: ENOXAPARIN 30 MG/0.3 ML (LOVENOX) SYR SC SCH (09:13)
[2016-06-29] MEDS: NS FLUSH 3 ML DAILY IV SCH (09:13)
[2016-06-29] MEDS: FAT EMULSIONS 250 ML IV SCH (10:58)
--- NOTE | 2016-06-29 12:15 | NUR ---
MULTIDISCIPLINARY MTG/DR. ROBERSON: Pt. has been advanced to non-carbonated clears. Pt. has not had any complaints of nausea or pain. Pt. has been told he needs to ambulate and is being encouraged by staff. TPN was started yesterday through PICC line. Pt. continues to be frustrated and upset about his condition. Pt. daughters met with [facility] yesterday. Will wait to see how Pt. does on TPN before electing hospice. No discharge needs identified at this time.
--- NOTE | 2016-06-29 14:36 | NUR ---
Pt endorses chest pain described as "needles across my chest" around 1425. VS: 98.7, 115 HR, 204/96 automatic, 185/92 manually, 24RR, 85% on RA. Placed on 2L NC, sats increased to 96% within 3 mins. Pt states chest pain is starting to go away on it's own at this time. Dino aware, new orders entered.
[2016-06-29 15:02] LABS: GGT 42 U/L (12-64); IRON 10 ug/dL (65-175); Prealbumin 6 mg/dL (16-42); UNBOUND IRON CONTENT 107 ug/dl (126-382)
[2016-06-29 15:08] LABS: ALBUMIN 2.5 g/dL (3.4-5.0); ANION GAP 9.8 MEQ/L (3-15); CALCULATED IONIZED CALCIUM 4.1 mg/dL (3.8-4.6); TOTAL PROTEIN 5.3 g/dL (6.4-8.5)
[2016-06-29] MEDS: TPN IV SCH ×9 (17:44)
--- NOTE | 2016-06-29 17:45 | NUR ---
PRN Dilaudid given at this time for c/o abd pain rated 4/10. TPN bag and tubing changed. Scop patch placed behind L ear. Skin warm, dry, intact. Resprs nonlabored, even on 3L NC. Pt grunts involuntarily upon expiration. Pt recognized this and states "why do I keep grunting like this?!". Informed pt it could be d/t the pain. Denies additional needs.
[2016-06-29] MEDS: SCOPOLAMINE 1.5 MG (TRANSDERM-SCOP) PATCH TD SCH (17:48)
[2016-06-29] MEDS ORDERED: TAMSULOSIN 0.4 MG (FLOMAX) CAP PO ONE (19:39)
[2016-06-30 04:18] VITALS: BP 140/70
[2016-06-30] MEDS: HYDROmorphone 1 MG/ML (DILAUDID) SYRINGE IV PRN ×5 (04:48→23:36)
[2016-06-30] MEDS: NS FLUSH 10 ML PRN IV ×3 (04:49→19:48)
[2016-06-30] MEDS: ONDANSETRON 2 MG/ML (Z0FRAN) 2 ML VIAL IV SCH ×4 (06:01→23:36)
--- NOTE | 2016-06-30 06:05 | NUR ---
Pt rests intermittently throughout the night. Occasionally dry heaves. TPN infusing w/o difficulty into LAC PICC line. Cont on 2L oxygen per nc. No needs at this time.
[2016-06-30 06:18] LABS: MEAN CORPUSCULAR HGB CONC 31.9 g/dL (31.0-37.0); MEAN PLATELET VOLUME 8.4 FL (6.0-9.5); PLATELET COUNT 668 10^3uL (150-450); WHITE BLOOD COUNT 11.83 10^3uL (4.0-11.0)
[2016-06-30 06:28] LABS: ANION GAP 7.8 MEQ/L (3-15); PHOSPHORUS 3.2 mg/dL (2.4-4.9)
[2016-06-30 06:51] LABS: MEAN CORPUSCULAR HEMOGLOBIN 23.9 PG (26.0-34.0); MEAN CORPUSCULAR VOLUME 75 FL (80-100)
[2016-06-30 07:11] LABS: BAND NEUTROPHILS % 3 % (0-6); EOSINOPHILS % 0 % (0-4); LYMPHOCYTES # 1.4 #; MONOCYTES % 9 % (3-11); NUCLEATED RED BLOOD CELLS 3; POLYCHROMASIA SLIGHT; RBC MORPH SEE REFERENCE (NORMAL); SEGMENTED NEUTROPHILS % 75 % (51-67); TOTAL CELLS COUNTED 100
[2016-06-30 07:12] LABS: ANISOCYTOSIS SLIGHT; HYPOCHROMASIA SLIGHT; MICROCYTOSIS SLIGHT; POIKILOCYTOSIS SLIGHT
[2016-06-30 08:09] VITALS: BP 114/76
[2016-06-30] MEDS: GABAPENTIN 100 MG (NEURONTIN) CAP PO SCH ×2 (08:56→21:00)
[2016-06-30] MEDS: PANTOPRAZOLE IV 40 MG in SODIUM CHLORIDE FLUSH 10 ML IV SCH (08:57)
[2016-06-30] MEDS: ENOXAPARIN 30 MG/0.3 ML (LOVENOX) SYR SC SCH (09:03)
[2016-06-30] MEDS: NS FLUSH 3 ML DAILY IV SCH (09:06)
--- NOTE | 2016-06-30 10:22 | NUR ---
Pt expresses wishes to "go home to today". Pt states he told the hospice nurse yesterday that he wanted a few days to think about it but he would like to go home on hospice today. Dino and DEMAR notified. Called daughter to inform her and for her to discuss this with her sisters to ensure everyone is agreeable to this.
--- NOTE | 2016-06-30 10:44 | NUR ---
PRN Dilaudid given at this time for c/o abd pain. Denies additional needs.
[2016-06-30 11:17] VITALS: BP 140/75
[2016-06-30 15:38] VITALS: BP 145/80
--- NOTE | 2016-06-30 16:18 | NUR ---
Dr. Sun and DEMAR visited with daughter regarding discharge to hospice. had previously visited with [facility] nurse Tricia. is undecided on whether Pt. would discharge to home or to [facility] in [place]. She will have a meeting with her two sisters to discuss options. If the decision is made that he will discharge to [facility] tomorrow the facility would need orders before 12p on Sunday. Staff would need to contact [facility] at [phone]. Will also need to contact [facility] so they could start services.
[2016-06-30] MEDS: [UNRECOGNIZED DRUG - OTHER] IV SCH ×7 (16:51)
[2016-06-30] MEDS: TPN IV SCH ×7 (16:51)
--- NOTE | 2016-06-30 19:26 | NUR ---
PRN Dilaudid given at 1450 per pt request prior to family meeting to discuss hospice. PRN Dilaudid given at 1742 per pt request. Daughter and visitor in room at this time. Pt got up to chair for staff to change bed. TPN infusing at 80mL/hr. Denies needs.
[2016-06-30 19:38] VITALS: BP 160/78
[2016-06-30] MEDS: PROMETHAZINE HCL INJ 12.5 MG in SODIUM CHLORIDE 25 ML IV PRN (19:48)
--- NOTE | 2016-06-30 21:10 | NUR ---
Pt's evening gabapentin held d/t increased lethargy from pt. Dr Hayes in at this time to update patient and family on plan of care.
[2016-07-01 00:21] VITALS: BP 129/84
[2016-07-01] MEDS: HYDROmorphone 1 MG/ML (DILAUDID) SYRINGE IV PRN (04:17)
[2016-07-01] MEDS: NS FLUSH 10 ML PRN IV ×7 (04:17→23:56)
[2016-07-01 04:32] VITALS: BP 144/79
[2016-07-01] MEDS: ONDANSETRON 2 MG/ML (Z0FRAN) 2 ML VIAL IV SCH ×4 (05:59→23:55)
--- NOTE | 2016-07-01 06:28 | NUR ---
Pt rests in short intervals throughout the night. Occasionally c/o generalized abd pain that is relieved by PRN dilaudid. PRN phenergan provided for c/o nausea. PICC line dressing changed this morning using sterile technique. Bio-patch applied. Pt tolerates well. Denies needs at this time.
[2016-07-01 06:42] LABS: MAGNESIUM* 2.1 mg/dL (1.6-2.3); PHOSPHORUS 3.1 mg/dL (2.4-4.9)
--- NOTE | 2016-07-01 07:20 | NUR ---
Patient resting in bed upon shift assessment. Alert and oriented X3 but does appear drowsy. Denies nausea or pain at this time. Does report flatus but no bm this am. TPN infusing without difficulty. 2L of 02 intact per nc. Respirations even and mildly labored at a rate of 30 per minute. Lung sounds diminished. Abdominal incisions clean and dry without redness. Updated patient on plan of care for shift. Will continue to monitor.
[2016-07-01 07:39] VITALS: BP 148/74
[2016-07-01] MEDS: NS FLUSH 3 ML DAILY IV SCH (08:28)
[2016-07-01] MEDS: GABAPENTIN 100 MG (NEURONTIN) CAP PO SCH ×2 (08:28→20:44)
[2016-07-01] MEDS: ENOXAPARIN 30 MG/0.3 ML (LOVENOX) SYR SC SCH (08:28)
[2016-07-01] MEDS: PANTOPRAZOLE IV 40 MG in SODIUM CHLORIDE FLUSH 10 ML IV SCH (08:29)
[2016-07-01] MEDS: PROMETHAZINE HCL INJ 12.5 MG in SODIUM CHLORIDE 25 ML IV PRN ×2 (10:36→16:39)
[2016-07-01] MEDS ORDERED: IBUPROFEN 600 MG (MOTRIN) TAB PO PRN (10:50)
[2016-07-01 11:21] VITALS: BP 109/61
[2016-07-01] MEDS: ACETAMINOPHEN 325 MG TAB (TYLENOL) PO SCH ×3 (11:54→23:55)
[2016-07-01] MEDS: [UNRECOGNIZED DRUG - NUTRITION] XX SCH (15:17)
[2016-07-01] MEDS: TPN IV SCH ×7 (15:22)
[2016-07-01] MEDS: [UNRECOGNIZED DRUG - OTHER] IV SCH ×7 (15:22)
[2016-07-01 15:29] VITALS: BP 108/97
--- NOTE | 2016-07-01 17:49 | NUR ---
Patient tolerates sips of full liquid diet trays. Ambulates to chair and remains sitting up for two hours during day shift. Becomes nauseous with most movement, dry heaves but does not produce emesis. IV promethazine provided Q6 hours. Reports keith Tylenol does help pain and does not require any other pain medications throughout day shift. Numerous family members at bedside. TPN infusing without difficulty. Call light in reach.
--- NOTE | 2016-07-01 18:19 | NUR ---
Patient ambulates to bathroom and has large bowel movement. Both formed stool and liquid stool noted. Patient reports mild relief from abdominal bloating. Will continue to monitor.
[2016-07-01] MEDS ORDERED: CALCIUM CARBONATE CHEWABLE 300 MG (TUMS) TABLET PO PRN (19:30)
--- NOTE | 2016-07-01 19:42 | NUR ---
Complaint of indigestion and requests TUMS. Dr. Saldivar notified, order received and TUMS given. Paitent denies any current pain.
[2016-07-01 20:11] VITALS: BP 117/73
[2016-07-02] VITALS (7 sets, daily range): BP systolic 121–144; BP diastolic 70–99
[2016-07-02] MEDS: ONDANSETRON 2 MG/ML (Z0FRAN) 2 ML VIAL IV SCH ×3 (06:36→17:07)
[2016-07-02] MEDS: NS FLUSH 10 ML PRN IV ×3 (06:36→17:08)
--- NOTE | 2016-07-02 06:40 | NUR ---
Patient has not rested well over night due to RUQ discomfort which he stated kept waking him up. This morning rang and wanted to vance to the bathroom. Was incontinent of large loose stool. Upon returning to bed was very short of air. Coughed repeatedly and coughed up a large piece of thick phlegm yellow in color. SaO2 99% on 2L. Lung sounds have expiratory wheeze on auscultation. Does begin to feel like he is catching his breath.
[2016-07-02] MEDS: ACETAMINOPHEN 325 MG TAB (TYLENOL) PO SCH ×3 (06:52→17:07)
--- NOTE | 2016-07-02 07:23 | NUR ---
Patient awake in bed upon shift assessment. Alert and oriented X3. Denies abdominal pain, nausea, bloating, or other distress. States "right now I am darn near perfect". Respirations even and mildly labored on roomair. Expiratory wheezes noted in bilateral upper lobes. Oxygen saturation 95%. Bowel sounds audible in all quadrants. Updated patient on plan of care for shift. Call light in reach.
[2016-07-02] MEDS: ENOXAPARIN 30 MG/0.3 ML (LOVENOX) SYR SC SCH (08:27)
[2016-07-02] MEDS: NS FLUSH 3 ML DAILY IV SCH (08:37)
[2016-07-02] MEDS: GABAPENTIN 100 MG (NEURONTIN) CAP PO SCH ×2 (08:38→21:27)
[2016-07-02] MEDS: PANTOPRAZOLE IV 40 MG in SODIUM CHLORIDE FLUSH 10 ML IV SCH (08:38)
[2016-07-02 09:23] LABS: ALBUMIN 2.3 g/dL (3.4-5.0); ANION GAP 8.5 MEQ/L (3-15); MAGNESIUM* 2.1 mg/dL (1.6-2.3); PHOSPHORUS 3.3 mg/dL (2.4-4.9)
--- NOTE | 2016-07-02 13:30 | NUR ---
Patient tolerates low fiber lunch tray (all of peaches, half of dinner roll, and 6 bites of mashed potatoes). Denies abdominal pain or nausea. Will continue to monitor.
[2016-07-02] MEDS ORDERED: SCOPOLAMINE PATCH REMOVAL TOP SCH (14:19)
[2016-07-02] MEDS: SCOPOLAMINE 1.5 MG (TRANSDERM-SCOP) PATCH TD SCH (14:37)
[2016-07-02] MEDS: [UNRECOGNIZED DRUG - OTHER] IV SCH ×7 (15:35)
[2016-07-02] MEDS: TPN IV SCH ×7 (15:35)
--- NOTE | 2016-07-02 18:24 | NUR ---
Patient becomes nauseous after a consuming two pears and bites of white bread for supper. Denies abdominal pain. Expels 3 loose bowel movements on day shift. Pleasant and cooperative with all cares. Does ambulate to chair to two meals. Call light in reach.
[2016-07-03 00:11] VITALS: BP 121/68
[2016-07-03] MEDS: ONDANSETRON 2 MG/ML (Z0FRAN) 2 ML VIAL IV SCH ×2 (00:22→05:19)
[2016-07-03] MEDS: ACETAMINOPHEN 325 MG TAB (TYLENOL) PO SCH ×4 (00:23→17:40)
--- NOTE | 2016-07-03 04:25 | NUR ---
Pt has had 3 large loose BM's during this shift, had one incontinent BM at beginning of shift. Did complain of mild generalized pain earlier, gave Motrin 600mg 1 tab PO for discomfort at 0145. Denies further pain or needs at this time. Will continue to monitor.
[2016-07-03 04:40] VITALS: BP 140/88
[2016-07-03 06:09] LABS: MEAN PLATELET VOLUME 8.9 FL (6.0-9.5); PLATELET COUNT 642 10^3uL (150-450); WHITE BLOOD COUNT 15.34 10^3uL (4.0-11.0)
[2016-07-03 06:14] LABS: ABSOLUTE RETIC # 92 10^3uL (22-82); MEAN CORPUSCULAR HEMOGLOBIN 23.4 PG (26.0-34.0); MEAN CORPUSCULAR VOLUME 75 FL (80-100)
[2016-07-03 06:22] LABS: ANISOCYTOSIS SLIGHT; BAND NEUTROPHILS % 0 % (0-6); EOSINOPHILS % 0 % (0-4); HYPOCHROMASIA SLIGHT; LYMPHOCYTES # 1.8 #; MONOCYTES # 0.5 #; MONOCYTES % 3 % (3-11); POIKILOCYTOSIS SLIGHT; RBC MORPH SEE REFERENCE (NORMAL); SEGMENTED NEUTROPHILS % 85 % (51-67); TOTAL CELLS COUNTED 100
[2016-07-03 06:44] LABS: ALBUMIN 2.2 g/dL (3.4-5.0); CALCULATED IONIZED CALCIUM 4.3 mg/dL (3.8-4.6); MAGNESIUM* 2.2 mg/dL (1.6-2.3); TOTAL PROTEIN 5.2 g/dL (6.4-8.5)
[2016-07-03 08:04] VITALS: BP 130/76
[2016-07-03] MEDS: PANTOPRAZOLE IV 40 MG in SODIUM CHLORIDE FLUSH 10 ML IV SCH (08:17)
[2016-07-03] MEDS: GABAPENTIN 100 MG (NEURONTIN) CAP PO SCH ×2 (08:17→20:02)
[2016-07-03] MEDS: FAT EMULSIONS 250 ML IV SCH (08:20)
[2016-07-03] MEDS: ENOXAPARIN 30 MG/0.3 ML (LOVENOX) SYR SC SCH (08:28)
[2016-07-03] MEDS: NS FLUSH 3 ML DAILY IV SCH (08:29)
[2016-07-03] MEDS: NS FLUSH 10 ML PRN IV (08:29)
--- NOTE | 2016-07-03 08:45 | NUR ---
Pt sitting up in chair at this time. Skin warm, dry, intact. Resprs nonlabored, even on 2L NC. Pt denies pain. Endorses feeling better today, states "I was grumpy when I first came in here". TPN infusing with no difficulty. Pt states "I thought I would go home on hospice today, but if you're giving me such good food through my IV, then maybe I'll wait until tomorrow" in reference to the IV lipids. Informed pt we can accommodate whatever he and his daughters decide to do. Pt denies needs at this time.
--- NOTE | 2016-07-03 10:34 | NUR ---
MULTIDISCIPLINARY MTG/DR. DOLAN: Pt. has been advancing his diet and has been doing well. Pt. has had bowel movements over the weekend. Will look at stopping TPN today. Pt. daughters will be here today and SW will further discuss discharge plans. Pt. will possibly discharge tomorrow.
--- NOTE | 2016-07-03 10:44 | NUR ---
Nutrition Follow Up: Pt. has been tolerating diet advancement over the weekend, and is currently on a low-fiber diet. Surgeon gave permission for him to receive food from home by his family. Plan is to DC TPN today in preparation of going home. Per discussion in multidisciplinary huddle, pt. and family are still discussing Hospice options. Weight today: 128.9#/58.6 kg--this is up another 3.5# Labs: triglycerides 61, prealbumin (pending) 1. No changes recommended at this time; will continue to follow with physician and surgeon.
--- NOTE | 2016-07-03 11:15 | NUR ---
O2 sats 99% on 2L. Titrated to 1L at 1055. Sats 98% on 1L at 1113, titrated to RA at this time.
[2016-07-03 11:53] VITALS: BP 124/80
[2016-07-03] MEDS: ONDANSETRON 4 MG (ZOFRAN) ORAL DISSOLVE TAB PO SCH ×2 (12:13→17:40)
--- NOTE | 2016-07-03 14:25 | NUR ---
Marta with [facility] visited with Pt. and his daughter Alina. Plan is for Pt. to discharge tomorrow to his daughter Alina's home in [place]. [place] will have DME equipment delivered to Alina's home in the morning and then she will be able to sisal picker Pt. and take him to her home. Once he is discharged [facility] will be contacted so they can meet Pt. at home and they can start services.
[2016-07-03] MEDS ORDERED: LACTATED RINGERS 1,000 ML IV SCH (16:00)
[2016-07-03 17:35] VITALS: BP 133/74
[2016-07-03 18:15] LABS: GGT 122 U/L (12-64); IRON 12 ug/dL (65-175); Prealbumin 9 mg/dL (16-42); UNBOUND IRON CONTENT 116 ug/dl (126-382)
--- NOTE | 2016-07-03 18:45 | NUR ---
Pt rests in bed throughout the shift. Pt did get up to chair multiple times throughout the day. Daughter Alina here for most of day, daughter here this evening as well. Pt has denied pain and nausea this shift. Appetite is improving. TPN DC'd at 1600, LR initiated at that time. Pt denies needs at this time.
[2016-07-03 20:07] VITALS: BP 117/66
[2016-07-04] MEDS: ONDANSETRON 4 MG (ZOFRAN) ORAL DISSOLVE TAB PO SCH ×3 (00:04→11:41)
[2016-07-04] MEDS: ACETAMINOPHEN 325 MG TAB (TYLENOL) PO SCH ×3 (00:04→11:41)
[2016-07-04 00:37] VITALS: BP 139/74
[2016-07-04 06:25] VITALS: BP 158/93
[2016-07-04 06:32] LABS: MEAN PLATELET VOLUME 9.2 FL (6.0-9.5); WHITE BLOOD COUNT 16.94 10^3uL (4.0-11.0)
[2016-07-04 06:40] LABS: MEAN CORPUSCULAR HEMOGLOBIN 23.6 PG (26.0-34.0); MEAN CORPUSCULAR HGB CONC 31.7 g/dL (31.0-37.0)
--- NOTE | 2016-07-04 07:08 | NUR ---
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 Pain controlled with scheduled tylenol.
[2016-07-04 07:15] LABS: ALBUMIN 2.3 g/dL (3.4-5.0); ANION GAP 10.9 MEQ/L (3-15); CALCULATED IONIZED CALCIUM 4.2 mg/dL (3.8-4.6); MAGNESIUM* 2.1 mg/dL (1.6-2.3); PHOSPHORUS 4.9 mg/dL (2.4-4.9); TOTAL PROTEIN 5.4 g/dL (6.4-8.5)
[2016-07-04 07:38] VITALS: BP 117/65
[2016-07-04] MEDS: NS FLUSH 3 ML DAILY IV SCH (09:34)
[2016-07-04] MEDS: PANTOPRAZOLE IV 40 MG in SODIUM CHLORIDE FLUSH 10 ML IV SCH (09:34)
[2016-07-04] MEDS: ENOXAPARIN 30 MG/0.3 ML (LOVENOX) SYR SC SCH (09:35)
--- NOTE | 2016-07-04 09:35 | NUR ---
Dr. Sun at bedside. Pt states he slept better last night than the last couple nights. Expresses desire to go home today. PICC line to Lt arm intact, IVF infusing as ordered.
--- NOTE | 2016-07-04 12:37 | NUR ---
PICC line to left arm dc'd at this time for dismissal. Tip intact, site without redness/swelling. No bleeding from site after 5minutes pressure applied. Daughter getting patient dressed then ready for dismissal.
--- NOTE | 2016-07-04 13:02 | NUR ---
Pt dismissed to home via w/c accompanied by daughter at 1245 Call placed to [facility]- talked to Jackie Iraheta.
== END 2016-07-04 12:45 | disposition hospice, home (50) | DRG 330 ==
LOC: ASC 09:31 → MED/SURG 15:27
PROVIDERS: ADMIT Surgery; ATTEND Surgery
PROC: 0DTF0ZZ Resection of Right Large Intestine, Open Approach (ICD-10-PCS; principal; 2016-06-21)
DX: C78.5 Secondary malignant neoplasm of large intestine and rectum (principal); C34.91 Malignant neoplasm of unspecified part of right bronchus or lung; K91.3 Postprocedural intestinal obstruction; E46 Unspecified protein-calorie malnutrition; C79.72 Secondary malignant neoplasm of left adrenal gland; Z66 Do not resuscitate; Z51.5 Encounter for palliative care; R07.9 Chest pain, unspecified; Z68.21 Body mass index [BMI] 21.0-21.9, adult; C44.319 Basal cell carcinoma of skin of other parts of face; Y83.6 Removal of other organ (partial) (total) as the cause of abnormal reaction of the patient, or of later complication, without mention of misadventure at the time of the procedure; Z87.891 Personal history of nicotine dependence; Z80.1 Family history of malignant neoplasm of trachea, bronchus and lung; Z80.0 Family history of malignant neoplasm of digestive organs
CPT/HCPCS: 36415; 36569; 71010; 74000; 74020; 80048; 80053; 80069; 81003; 82150; 82248; 82465; 82977; 83540; 83550; 83690; 83735; 84100; 84134; 84443; 84478; 84484; 85007; 85018; 85025; 85027; 85045; 85610; 86850; 86900; 86901; 88309; 88341; 88342; 93005; 94762; 94770